=== PATIENT | female | born 1955 | race Caucasian/White ===

== ENCOUNTER → 2017-01-06 | Day surgery (SDC) | payer MEDICARE, MEDICAID ==
[~2017-01-06] MED LIST: ALBU0.086; ATOR40TA PO; BETH10 PO; CALCTAB23; CYMB30CA PO; EPIP0.3I IM; FLUOCRE TOP; GABA300C3 PO; GLUC1000 PO; GLYB1TAB50 PO; IBUP-1116 PO; IMIP25TA PO; LACTATED RINGER'S 1,000 ML BAG IV ONE; LAMI250T2 PO; LEVO175T2 PO; LOSA25 PO; METO25 PO; MILKSUS5 PO; MONT10TA2 PO; OXYBXL5 PO; PROPOFOL 500 MG/50 ML BTL IV ONE; PROT40TA PO; ROPI1TAB72 PO; TOPA200T4 PO; VERA27.5; WELL150T PO
--- NOTE | 2017-01-06 12:31 | GIPROC ---
[facility] [address] [facility] [place], [address] EGD WITH DILATION PROCEDURE REPORT EXAM DATE: 01/06/2017 PATIENT NAME: Cortney Mendoza MR#: [id number] BIRTHDATE: 1955 ATTENDING: Brenda Hua MD ORDER #: [id number] INSPECTOR AND HAND PACKAGER: Andra Ramirez RN STATUS: outpatient INDICATIONS: The patient is a 61 yr old female here for an EGD with dilation due to dysphagia PROCEDURE PERFORMED: EGD w/ biopsy EGD w/ dilation of esophagus via guidewire MEDICATIONS: None and Per Anesthesia. TOPICAL ANESTHETIC: none CONSENT: The patient understands the risks and benefits of the procedure and understands that these risks include, but are not limited to: sedation, allergic reaction, infection, perforation and/or bleeding. Alternative means of evaluation and treatment include, among others: physical exam, x-rays, and/or surgical intervention. The patient elects to proceed with this endoscopic procedure. medical equipment was checked for proper function. Hand hygiene and appropriate measures for infection prevention was taken. After the risks, benefits and alternatives of the procedure were thoroughly explained, Informed consent was verified, confirmed and timeout was successfully executed by the treatment team. The patient was anesthetized with topical anesthesia and the EC-3490Li ([id number]) endoscope was introduced through the mouth and advanced to the second portion of the duodenum. The instrument was slowly withdrawn as the mucosa was fully examined. Gastritis antrum-biopsy duodenitis second portion-biopsy spasm distal esophagus. Dilation was performed at gastroesophageal junction. DILATOR: SIZE(S): RESISTANCE: HEME: APPEARANCE: Dilator: Savary over guidewire Size(s): 17 COMMENT: Retroflexed views revealed a hiatal hernia ADVERSE EVENTS: There were no complications. IMPRESSIONS: 1. Gastritis antrum-biopsy duodenitis second portion-biopsy spasm distal esophagus 2. Retroflexed views revealed a hiatal hernia RECOMMENDATIONS: 1. Await biopsy results. Biopsy results will not be ready for 7-10 days. If you don't hear from us in two weeks, call our office for biopsy results. 2. Anti-reflux regimen 3. Continue PPI 4. Dilatations PRN REPEAT EXAM: EGD with dilatation Brenda Hua MD eSigned: Brenda Hua MD 01/06/2017 12:31 PM cc: [facility] Fer[facility] M.D. PATIENT NAME: Cortney Mendoza MR#: [id number]
--- NOTE | 2017-01-06 12:35 | GIPROC ---
[facility] [address] [facility], [address] COLONOSCOPY PROCEDURE REPORT EXAM DATE: 01/06/2017 PATIENT NAME: Cortney Mendoza MR #: [id number] BIRTHDATE: 1955 ENDOSCOPIST: Brenda Hua MD ORDER #: [id number] ANIMAL SERVICES OFFICER: Andra Ramirez RN STATUS: outpatient INDICATIONS: The patient is a 61 yr old female here for a colonoscopy due to rectal bleeding, abdominal pain PROCEDURE PERFORMED: Colonoscopy with polypectomy Thermal destruction internal hemorrhoids MEDICATIONS: None and Per Anesthesia. PREP QUALITY: fair PREP TYPE:GoLytely ESTIMATED BLOOD LOSS: None CONSENT: The patient understands the risks and benefits of the procedure and understands that these risks include, but are not limited to: sedation, allergic reaction, infection, perforation and/or bleeding. Alternative means of evaluation and treatment include, among others: physical exam, x-rays, and/or surgical intervention. The patient elects to proceed with this endoscopic procedure. medical equipment was checked for proper function. Hand hygiene and appropriate measures for infection prevention was taken. After the risks, benefits and alternatives of the procedure were thoroughly explained, Informed consent was verified, confirmed and timeout was successfully executed by the treatment team. A digital exam revealed external hemorrhoids The EC-3490Li ([id number]) endoscope was introduced through the anus and advanced to the cecum, which was identified by both the appendix and ileocecal valve. The instrument was then slowly withdrawn as the colon was fully examined. COLON FINDINGS: Diverticulosis sigmoid,descending two pedunculated polyps in ascending colon-7 mm-hot snare polypectomy with complete removal polyp sessile in midtransverse-6 mm-hot snare polypectomy with complete removal internal hemorrhoids s/p IRC -setting 3 -4 applications. Retroflexed views revealed internal hemorrhoids and Retroflexed views revealed small internal hemorrhoids The scope was then completely withdrawn from the patient and the procedure terminated. PROCEDURE WITHDRAWAL TIME:10minutes ADVERSE EVENTS: There were no complications. IMPRESSIONS: 1. Diverticulosis sigmoid,descending two pedunculated polyps in ascending colon-7 mm-hot snare polypectomy with complete removal polyp sessile in midtransverse-6 mm-hot snare polypectomy with complete removal internal hemorrhoids s/p IRC -setting 3 -4 applications 2. Retroflexed views revealed internal hemorrhoids 3. Retroflexed views revealed small internal hemorrhoids 4. Revealed external hemorrhoids RECOMMENDATIONS: 1. Await biopsy results. Biopsy results will not be ready for 7-10 days. If you don't hear from us in two weeks, call our office for results. 2. Benefiber 2 tsp daily 3. Probiotics from any [facility] or health food store 4. Avoid NSAIDS and Aspirin RECALL: Colonoscopy, pending biopsy results Brenda Hua MD eSigned: Brenda Hua MD 01/06/2017 12:35 PM cc: [facility] Rodriguez and Polina Ferreira M.D. PATIENT NAME: Cortney Mendoza MR#: [id number]
== END | disposition home or self-care (01) ==
LOC: ESDC 10:28
PROVIDERS: ATTEND Internal Medicine Gastroenterology
DX: K62.5 Hemorrhage of anus and rectum (principal); R10.9 Unspecified abdominal pain; K57.90 Diverticulosis of intestine, part unspecified, without perforation or abscess without bleeding; D12.2 Benign neoplasm of ascending colon; D12.3 Benign neoplasm of transverse colon; R13.10 Dysphagia, unspecified; K29.70 Gastritis, unspecified, without bleeding; K29.80 Duodenitis without bleeding; K22.4 Dyskinesia of esophagus; E11.9 Type 2 diabetes mellitus without complications; Z79.84 Long term (current) use of oral hypoglycemic drugs; K64.0 First degree hemorrhoids
CPT/HCPCS: 00740; 00810; 00902; 43239; 43248; 45385; 46930; 82948; 88305; J3010; J7120